=== PATIENT | female | born 1970 | race Caucasian/White ===

== ENCOUNTER 2018-12-25 15:13 | Outpatient (CLI) | payer BC ==
[2018-12-25 15:34] LABS: #Basophils 0.1 thou/uL (0.0-0.2); #Eosinphils 0.2 thou/uL (0.0-0.7); #Lymphocytes 2.9 thou/uL (1.20-3.40); #Monocytes 0.7 thou/uL (0.11-0.59); #Neutrophils 3.5 thou/uL (1.40-6.50); %Basophils 0.7 % (0.0-1.0); %Eosinophils 3.3 % (0.0-10.0); %Lymphocytes 39.3 % (21.0-51.0); %Monocytes 9.1 % (0.0-10.0); %Neutrophils 47.6 % (42.0-75.0); Hemoglobin 12.2 g/dL (12.0-16.0); Mean Corpuscular Hemoglobin 29.3 pg (27.0-31.0); Mean Corpuscular Volume 88.7 fL (78.0-98.0); Mean Platelet Volume 7.7 fL (7.4-10.4); Platelet Count 190 thou/uL (130-400); RBC Distribution Width 13.2 % (11.5-14.5); Red Blood Cell (RBC) Count 4.18 mill/uL (4.20-5.40); White Blood Cell (WBC) Count 7.4 thou/uL (4.8-10.8)
[2018-12-25 15:58] LABS: ALT (SGPT) 18 U/L (8-55); AST (SGOT) 16 U/L (5-34); Albumin 3.9 g/dL (3.5-5.0); Alkaline Phosphatase 63 U/L (40-150); Anion Gap 12 mmol/L (10-20); BUN (Urea Nitrogen) 17 mg/dL (7.0-18.7); Bilirubin, Total 0.3 mg/dL (0.2-1.2); Calc. Creatinine Clearance 0 mL/min (70-130); Calcium 9.4 mg/dL (7.8-10.44); Carbon Dioxide 27 mmol/L (22-29); Chloride 107 mmol/L (98-107); Estimated GFR-MDRD 73; Glucose 81 mg/dL (70-105); Potassium 3.6 mmol/L (3.5-5.1); Protein, Total 6.9 g/dL (6.0-8.3); Sodium 142 mmol/L (136-145)
--- NOTE | 2018-12-25 16:34 | RAD ---
PA AND LATERAL CHEST X-RAY 12/25/18 HISTORY: Breast cancer post mastectomy in 01/2018. Followup evaluation. COMPARISON: None available. FINDINGS: Multiple surgical clips overlie the chest. The cardiac silhouette and pulmonary vasculature are withi n normal limits. There is mild elevation of the right hemidiaphragm. Lungs are clear. No discrete pul monary nodule or mass is visualized. Mild degenerative changes seen in the upper lumbar spine. IMPRESSION: No acute cardiopulmonary process. POS: [facility]
[2018-12-26 13:03] LABS: Follow-up Ref Lab Comp? YES; Follow-up Result - Ref Lab REPORT FAXED
[2018-12-27 11:24] LABS: Cancer Antigen (CA 27.29) 28.2 U/mL (0.0-38.6)
== END 2018-12-25 15:14 | disposition home or self-care (01) ==
LOC: SCSRAD 15:13
PROVIDERS: ATTEND Internal Medicine Hematology & Oncology
DX: D05.11 Intraductal carcinoma in situ of right breast (principal)
CPT/HCPCS: 36415; 71046; 80053; 82306; 85025; 86300

== ENCOUNTER 2020-06-23 15:24 | Outpatient (CLI) | payer BC ==
--- NOTE | 2020-06-23 15:49 | RAD ---
XR Chest Pa Lat STANDARD HISTORY: Right breast cancer. COMPARISON: 12/25/2018 FINDINGS: The heart size is normal. Mild elevation the right hemidiaphragm is stable. The lungs are w ell expanded without focal areas of consolidation, pneumothorax or pleural effusions. Surgical clips overlying the chest are again seen. Mild degenerative changes in the spine. IMPRESSION: Stable exam. No radiographic evidence of acute cardiopulmonary process.
== END 2020-06-23 15:25 | disposition home or self-care (01) ==
LOC: BICRAD 15:24
PROVIDERS: ATTEND Internal Medicine Hematology & Oncology
DX: C50.511 Malignant neoplasm of lower-outer quadrant of right female breast (principal)
CPT/HCPCS: 36415; 71046; 80053; 82378; 85025; 86300

== ENCOUNTER 2021-02-21 14:38 | Outpatient (CLI) | payer BC ==
[2021-02-21 15:37] LABS: #Eosinphils 0.2 10x3/uL (0.0-0.5); #Monocytes 0.7 10x3/uL (0.0-1.1); #Neutrophils 4.9 10x3/uL (1.5-8.4); %Basophils 0.3 % (0.0-2.0); %Eosinophils 2.4 % (0.0-6.0); %Lymphocytes 33.4 % (18.0-47.0); %Monocytes 7.4 % (0.0-10.0); %Neutrophils 56.2 % (40.0-75.0); Hemoglobin 12.5 g/dL (12.0-15.5); Mean Corpuscular HGB CONC 32.6 g/dL (32.0-36.0); Mean Corpuscular Hemoglobin 29.6 pg (27.0-33.0); Mean Corpuscular Volume 90.5 fl (81.6-98.3); Mean Platelet Volume 10.7 fl (7.4-10.4); Platelet Count 228 10x3/uL (150-450); RBC Distribution Width 13.3 % (11.5-14.5); Red Blood Cell (RBC) Count 4.23 10x6/uL (3.90-5.03); White Blood Cell (WBC) Count 8.7 10x3/uL (3.5-10.5)
[2021-02-21 16:09] LABS: ALT (SGPT) 64 U/L (8-55); AST (SGOT) 28 U/L (5-34); Albumin 3.9 g/dL (3.5-5.0); Alkaline Phosphatase 64 U/L (40-110); Anion Gap 14 mmol/L (10-20); BUN (Urea Nitrogen) 9 mg/dL (9.8-20.1); Bilirubin, Direct 0.2 mg/dL (0.1-0.3); Bilirubin, Total 0.3 mg/dL (0.2-1.2); Calc. Creatinine Clearance 0 mL/min (70-130); Carbon Dioxide 26 mmol/L (22-29); Chloride 104 mmol/L (98-107); Glucose 95 mg/dL (70-105); Lipase 99 U/L (8-78); Potassium 4.2 mmol/L (3.5-5.1); Protein, Total 6.6 g/dL (6.0-8.3); Sodium 140 mmol/L (136-145)
[2021-02-22 02:13] LABS: SARS-CoV-2 PCR by NAA Not Detected (NotDetected)
== END 2021-02-21 14:39 | disposition home or self-care (01) ==
LOC: LABBT 14:38
PROVIDERS: ATTEND Surgery
DX: Z01.812 Encounter for preprocedural laboratory examination (principal); K80.20 Calculus of gallbladder without cholecystitis without obstruction; Z20.822 Contact with and (suspected) exposure to COVID-19
CPT/HCPCS: 80048; 80076; 83690; 85025; 87635; U0003; U0005

== ENCOUNTER 2021-02-24 12:03 | Day surgery (SDC) | payer BC ==
[2021-02-23 14:48] VITALS: BMI 35.5
[2021-02-24] MEDS ORDERED: Lidocaine 1% w/Epinephrine 1:100K 20 ML VIAL ONE (13:33)
[2021-02-24] MEDS ORDERED: Bupivacaine 0.25% HCL 30 ML VIAL ONE (13:33)
[2021-02-24] MEDS ORDERED: Fentanyl 100 MCG/2 ML VIAL ONE (13:42)
[2021-02-24] MEDS ORDERED: Iothalamate Meglumine 60% 50 ML VIAL FS ONE (13:52)
[2021-02-24] MEDS ORDERED: Glycopyrrolate 0.2 MG/ML 5 ML SYRINGE ONE (13:57)
[2021-02-24] MEDS ORDERED: Dexamethasone 20 MG/5 ML VIAL ONE (13:57)
[2021-02-24] MEDS ORDERED: Rocuronium Bromide 10 MG/ML (10ML VIAL) ONE (13:57)
[2021-02-24] MEDS ORDERED: Lidocaine 1% PF 5 ML VIAL ONE (13:57)
[2021-02-24] MEDS ORDERED: Ondansetron PF 4 MG/2 ML Vial ONE (13:57)
[2021-02-24] MEDS ORDERED: PROPOFOL 200 MG/20 ML VIAL ONE (13:57)
[2021-02-24] MEDS ORDERED: Meperidine HCl/PF 25 MG/ML VIAL ONE (14:53)
[2021-02-24] MEDS ORDERED: Morphine 2 MG/ML VIAL ONE ×3 (15:06→16:05)
[2021-02-24] MEDS ORDERED: HYDROcodone/Acetaminophen 5/325 mg Tablet ONE ×2 (17:52→18:11)
[2021-02-24] MEDS ORDERED: Ondansetron ODT 4 MG TAB ONE (18:14)
== END 2021-02-24 18:50 | disposition home or self-care (01) ==
LOC: SDC 12:03
PROVIDERS: ATTEND Surgery
DX: K80.10 Calculus of gallbladder with chronic cholecystitis without obstruction (principal); Z79.810 Long term (current) use of selective estrogen receptor modulators (SERMs); Z79.899 Other long term (current) drug therapy; Z85.3 Personal history of malignant neoplasm of breast
CPT/HCPCS: 47532; 88304; J0690; J1100; J2175; J2270; J2405; J2704; J3010; Q0162; Q9961; S0020

== ENCOUNTER 2021-06-24 14:49 | Outpatient (CLI) | payer BC | END 2021-06-24 14:50 | disposition home or self-care (01) | LOC: BICRAD 14:49 | PROVIDERS: ATTEND Internal Medicine Hematology & Oncology | DX: D05.11 Intraductal carcinoma in situ of right breast (principal) | CPT/HCPCS: 71046 ==

== ENCOUNTER 2022-06-29 13:31 | Outpatient (CLI) | payer BC | END 2022-06-29 13:32 | disposition home or self-care (01) | LOC: BICRAD 13:31 | PROVIDERS: ATTEND Internal Medicine Hematology & Oncology | DX: C50.919 Malignant neoplasm of unspecified site of unspecified female breast (principal) | CPT/HCPCS: 71046 ==